=== PATIENT | female | born 1940 | race Caucasian/White ===

== ENCOUNTER 2016-08-05 20:21 | Emergency (ER) | payer OTHER ==
[2016-08-05 20:30] VITALS: BMI 37.8
--- NOTE | 2016-08-05 20:43 | PDOC ---
History of Present Illness - General History Source: Patient, Family (Daughter) Exam Limitations: No Limitations - History of Present Illness Initial Comments: 08/05/16 21:23 The patient is a 76 year old female, with a significant past medical history of Alzheimer's, CAD s/p CABG, HTN, HLD , who presents to the emergency department with chest pain today. The patient is accompanied with her daughter who states that she was on her nightly walk around the track when she suddenly developed mid sternal chest pain with associated SOB. The daughter states she did not have chest pain on yesterdays night walk. She denies headache or dizziness. She denies fever, chills, nausea, vomit, diarrhea or constipation. She denies dysuria, frequency, urgency or hematuria. Allergies: NKA Past surgical history: CABG Social history: None PCP: Dr. Renard Preston <Melba Villafuerte - Last Filed: 08/05/16 22:06> <Jagdish Goins - Last Filed: 08/06/16 01:09> - General Chief Complaint: Chest Pain Stated Complaint: DIFF BREATHING, CHEST PAIN Time Seen by Provider: 08/05/16 20:42 Past History <Melba Villafuerte - Last Filed: 08/05/16 22:06> - Past Medical History Cardiac Disorders: Yes Dementia: Yes Diabetes: Yes (no longer on meds) HTN: Yes Hypercholesterolemia: Yes - Surgical History Cardiac Surgery: Yes (OPEN HEART) - Immunization History Immunization Up to Date: Yes - Psycho/Social/Smoking Cessation Hx Anxiety: No Suicidal Ideation: No Smoking Status: No Smoking History: Unknown if ever smoked Have you smoked in the past 12 months: No Number of Cigarettes Smoked Daily: 0 If you are a former smoker, when did you quit?: 1997 Hx Alcohol Use: No Drug/Substance Use Hx: No Substance Use Type: None Hx Substance Use Treatment: No <Jagdish Goins - Last Filed: 08/06/16 01:09> - Past Medical History Allergies/Adverse Reactions: Allergies Allergy/AdvReac Type Severity Reaction Status Date / Time No Known Allergies Allergy Verified 08/05/16 20:30 Home Medications: Ambulatory Orders Simvastatin [Zocor -] 40 mg PO HS 12/07/13 Carvedilol [Coreg -] 6.25 mg PO BID #60 tablet 12/08/13 Ranolazine [Ranexa -] 500 mg PO BID #60 tab 12/08/13 Calcium Carbonate [Calcium] 500 mg PO BID 08/05/16 Review of Systems - Review of Systems Able to Perform ROS?: Yes Comments:: 08/05/16 21:23 GENERAL/CONSTITUTIONAL: No fever or chills. No weakness. HEAD, EYES, EARS, NOSE AND THROAT: No change in vision. No ear pain or discharge. No sore throat. CARDIOVASCULAR: + chest pain or shortness of breath. RESPIRATORY: No cough, wheezing, or hemoptysis. GASTROINTESTINAL: No nausea, vomiting, diarrhea or constipation. GENITOURINARY: No dysuria, frequency, or change in urination. MUSCULOSKELETAL: No joint or muscle swelling or pain. No neck or back pain. SKIN: No rash NEUROLOGIC: No headache, vertigo, loss of consciousness, or change in strength/ sensation. ENDOCRINE: No increased thirst. No abnormal weight change. HEMATOLOGIC/LYMPHATIC: No anemia, easy bleeding, or history of blood clots. ALLERGIC/IMMUNOLOGIC: No hives or skin allergy. <Melba Villafuerte - Last Filed: 08/05/16 22:06> *Physical Exam - Vital Signs Last Vital Signs Temp Pulse Resp BP Pulse Ox 98.1 F 74 22 120/71 97 08/05/16 20:29 08/05/16 20:29 08/05/16 20:29 08/05/16 20:29 08/05/16 20:29 - Physical Exam Comments: 08/05/16 21:24 GENERAL: Awake, alert, and fully oriented, in no acute distress HEAD: No signs of trauma EYES: PERRLA, EOMI, sclera anicteric, conjunctiva clear ENT: Auricles normal inspection, hearing grossly normal, nares patent, oropharynx clear without exudates. Moist mucosa NECK: Normal ROM, supple, no lymphadenopathy, JVD, or masses LUNGS: Breath sounds equal, clear to auscultation bilaterally. No wheezes, and no crackles HEART: Regular rate and rhythm, normal S1 and S2, no murmurs, rubs or gallops ABDOMEN: Soft, nontender, normoactive bowel sounds. No guarding, no rebound. No masses EXTREMITIES: Normal range of motion, no edema. No clubbing or cyanosis. No cords, erythema, or tenderness NEUROLOGICAL: Cranial nerves II through XII grossly intact. Normal speech, normal gait SKIN: Warm, Dry, normal turgor, no rashes or lesions noted. <ChristoMelba newman - Last Filed: 08/05/16 22:06> - Vital Signs Last Vital Signs Temp Pulse Resp BP Pulse Ox 98.1 F 74 22 120/71 97 08/05/16 20:29 08/05/16 20:29 08/05/16 20:29 08/05/16 20:29 08/05/16 20:29 <Jagdish Goins - Last Filed: 08/06/16 01:09> ED Treatment Course - LABORATORY CBC & Chemistry Diagram: 08/05/16 21:29 08/05/16 21:29 <ChristoMelba - Last Filed: 08/05/16 22:06> - LABORATORY CBC & Chemistry Diagram: 08/05/16 21:29 08/05/16 21:29 <Jagdish Goins - Last Filed: 08/06/16 01:09> Medical Decision Making - Medical Decision Making 08/05/16 22:[address] Buster Piedra. rate 76 bpm Sinus rhythm with occasional premature ventricular complexes NV [id number] ms QRS Duration 80 ms QT/QTc 384/432 P-R-T axes -13 17 9 <ChristoMelba - Last Filed: 08/05/16 22:06> *DC/Admit/Observation/Transfer - Attestations Scribe Attestion: 08/05/16 21:24 Documentation prepared by Melba Villafuerte, acting as medical microbiologist for Jagdish Goins MD/DO. <ChristoMelba - Last Filed: 08/05/16 22:06> - Discharge Dispostion Admit: No - Attestations Physician Attestion: 08/05/16 20:43 I, Dr. Jagdish Goins, attest that this document has been prepared under my direction and personally reviewed by me in its entirety. I further attest, that it accurately reflects all work, treatment, procedures and medical decision -making performed by me. <Jagdish Goins - Last Filed: 08/06/16 01:09> Diagnosis at time of Disposition: Chest pain of unknown etiology - Discharge Dispostion Disposition: HOME Condition at time of disposition: Good - Referrals Referrals: Renard Preston MD [Primary Care Provider] - - Patient Instructions Printed Discharge Instructions: DI for Atypical Chest Pain, DI for Chest Pain Additional Instructions: Mrs Delgado - All of your tests were normal..... but you need to have a stress test. See your doctor tomorrow so that they can schedule you..,.. Return to us if any problems. Best- Dr. Jagdish Goins Take your results with you.
[2016-08-05 22:03] LABS: BASOPHIL 0.3 % (0-2.0); EOSINOPHIL 2.4 % (0-4.5); MCH 27.4 pg (25.7-33.7); MCHC 32.7 g/dl (32.0-36.0); MEAN CELL VOLUME 83.8 fl (80-96); MEAN PLT VOLUME 9.1 fl (7.5-11.1); PLATELET COUNT 130 K/MM3 (134-434); RDW 16.4 % (11.6-15.6); WHITE BLOOD COUNT 4.9 K/mm3 (4.0-10.0)
[2016-08-05 22:15] LABS: INR 1.08 (0.82-1.09); PROTHROMBIN TIME (PATIENT) 11.9 SEC (9.98-11.88)
[2016-08-05 22:17] VITALS: TEMP 98
[2016-08-05 22:26] LABS: ALBUMIN 3.6 g/dl (3.4-5.0); ANION GAP 6 (8-16); CALCIUM 8.8 mg/dL (8.5-10.1); CO2 32 mmol/L (21-32); COCKROFT - GAULT 66.3935; GLUCOSE,RANDOM 123 mg/dL (74-106); SGOT/AST 12 U/L (15-37); SGPT/ALT 17 U/L (12-78)
[2016-08-05 22:30] LABS: ALK PHOS 54 U/L (45-117); BILIRUBIN,TOTAL 0.6 mg/dL (0.2-1.0); TOT PROT 6.2 g/dl (6.4-8.2); TROPONIN I < 0.02 ng/ml (0.00-0.05)
[2016-08-06 00:58] LABS: TROPONIN I < 0.02 ng/ml (0.00-0.05)
[2016-08-06 01:14] VITALS: BP 130/70; PULSE 71
[2016-08-06 01:18] LABS: URINE APPEARANCE CLEAR; URINE BILIRUBIN NEGATIVE (NEGATIVE); URINE BLOOD NEGATIVE (NEGATIVE); URINE COLOR STRAW; URINE GLUCOSE (UA) NEGATIVE (NEGATIVE); URINE KETONE NEGATIVE (NEGATIVE); URINE NITRITE NEGATIVE (NEGATIVE); URINE PROTEIN NEGATIVE (NEGATIVE); URINE UROBILINOGEN NEGATIVE E.U./dl (0.2-1.0)
[2016-08-06 01:25] LABS: URINE LEUK ESTERASE 1+ (NEGATIVE)
[2016-08-06 02:50] LABS: URINE RBC 2 /hpf (0-3); URINE WBC 4 /hpf (3-5)
--- NOTE | 2016-08-06 13:06 | EKG ---
Test Reason : Blood Pressure : / mmHG Vent. Rate : 076 BPM Atrial Rate : 076 BPM P-R Int : 186 ms QRS Dur : 080 ms QT Int : 384 ms P-R-T Axes : -13 017 009 degrees QTc Int : 432 ms SINUS RHYTHM WITH OCCASIONAL PREMATURE VENTRICULAR COMPLEXES OTHERWISE NORMAL ECG WHEN COMPARED WITH ECG OF 07-DEC-2013 07:23, PREMATURE VENTRICULAR COMPLEXES ARE NOW PRESENT Confirmed by DIYA RICHARDS, MIGUEL ANGEL ([id number]) on 08/06/2016 1:06:42 PM Referred By: Confirmed By:MIGUEL ANGEL KEANE MD
== END 2016-08-06 01:14 | disposition home or self-care (01) ==
LOC: JER 20:21
DX: R07.89 Other chest pain (principal); I25.10 Atherosclerotic heart disease of native coronary artery without angina pectoris; I10 Essential (primary) hypertension; Z95.1 Presence of aortocoronary bypass graft; E78.00 Pure hypercholesterolemia, unspecified; G30.8 Other Alzheimer's disease; F02.80 Dementia in other diseases classified elsewhere, unspecified severity, without behavioral disturbance, psychotic disturbance, mood disturbance, and anxiety
CPT/HCPCS: 36415; 71010-TC; 80053; 81003; 81015; 82550; 83880; 84484; 85025; 85610; 93005; 93010; 99284-25

== ENCOUNTER 2017-03-07 18:04 | Emergency (ER) | payer OTHER ==
[2017-03-07 18:28] VITALS: BP 120/71; PULSE 65; TEMP 99; BMI 34.9
--- NOTE | 2017-03-07 18:48 | PDOC ---
Attending Attestation - Medical Decision Making 10:00pm Call placed to Dr. Driscoll's answering service, awaiting call back. r EXAM: CT cervical spine without contrast HISTORY: Status post fall COMPARISON: None. FINDINGS: 1. No evidence of fracture or subluxation of the cervical spine. 2. Cervical spondylosis. Read by: Ping Ross MD EXAM: CT head without contrast HISTORY: Status post fall COMPARISON: None. FINDINGS: 1. There is loss of visualization of the subarachnoid spaces in the right frontal parietal convexity suggestive of edema in this region. The cortex continues to be clearly visualized. There is no evidence of intracranial hemorrhage or significant mass effect. Comparison with previous imaging studies would be helpful. If no prior studies are available for comparison, MRI of the brain may be helpful for further evaluation of this finding. 2. Ventricular size is concordant with the degree of atrophy. 3. The visualized portions of the orbits, paranasal and mastoid sinuses are unremarkable 4. No evidence of fracture. Read by: Ping Ross MD 10:16pm Second call placed to Dr. Driscoll's answering service, awaiting call back. EXAM: X-ray left hip, 2 views HISTORY: Status post fall onto left side. Next the old x-ray pelvis also performed today COMPARISON: None. FINDINGS: Visualization of detail is significantly limited by artifact created by large body habitus. There is no definite evidence of fracture or subluxation. However, a subtle fracture could be missed due to artifact. There is atherosclerotic vascular calcification. IMPRESSION:1. Study degraded by artifact created by large body habitus. 2. No definite evidence of fracture or subluxation. However, subtle fractures could be missed due to artifact. If there is a clinical concern for fracture, CT imaging would be helpful. Read by: Ping Ross MD EXAM: XR LEFT ELBOW HISTORY: Fracture COMPARISON: None. FINDINGS: There is a minimally displaced comminuted fracture of the proximal ulna with intra-articular extension. No dislocation or additional fractures.. IMPRESSION: Proximal intra-articular ulna fracture. Read by: Moises Paredes MD Documentation prepared by Malcolm Javier, acting as medical records assistant for Rossy Stratton MD. 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 Pt was with daughter when she tripped on a stair landing on her L elbow, L hip. Pt denies headstrike, daughter does not believe she struck her head but is not sure. Pt did not have LOC. Was able to walk afterwards, reports mostly pain in L elbow. Daughter reports pt at baseline and was in her USOH prior to the fall. No fevers , chills, CP, SOB, palpitations, headache, weakness, numbness, abd pain, focal weakness or numbness. - Physicial Exam PE: 03/07/17 18:48 GENERAL: Awake, alert, in no acute distress HEAD: No signs of trauma EYES: PERRLA, EOMI, sclera anicteric, conjunctiva clear ENT: Auricles normal inspection, hearing grossly normal, nares patent, oropharynx clear without exudates. Moist mucosa NECK: Normal ROM, supple, no lymphadenopathy, JVD, or masses LUNGS: Breath sounds equal, clear to auscultation bilaterally. No wheezes, and no crackles HEART: Regular rate and rhythm, normal S1 and S2, no murmurs, rubs or gallops ABDOMEN: Soft, nontender, normoactive bowel sounds. No guarding, no rebound. No masses EXTREMITIES: L elbow with large hematoma and deformity to olecrenon fossa, pain with ROM, 2+ radial pulse. No ttp of L hip, pelvis stable, FROM of hips b/l and knees. RUE wnl, FROM, no edema. NEUROLOGICAL: Normal speech, cranial nerves intact, negative pronator drift, 5/ 5 strength in all 4 extremities, normal sensation to light touch in all 4 extremities, normal cerebellar exam, normal reflexes and tone SKIN: Warm, Dry, normal turgor, no rashes or lesions noted. - Medical Decision Making 03/07/17 18:50 76yo F on ASA 81mg daily p/w mechanical fall. Will obtain imaging of head, LUE, chest, hip/pelvis to look for bony injury. Pt declines pain medication. 03/08/17 00:29 Elbow XR with fracture of prox ulna, c/s Dr. Driscoll who recommends posterior splint with bulky dressing underneath. Splint placed. Pt feels well, at her baseline. CTH with possible edema? to R frontal parietal convexity. No bleeding or other acute findings. IOC recommends further imaging for evaluation of this finding but patient and her daughter do not want to stay for further evaluation. Per the daughter, pt is at her baseline and they will follow up with PMD next week. CT c-spine and pelvis/chest XR wnl. I discussed the physical exam findings, ancillary test results and final diagnoses with the patient. I answered all of the patient's questions. The patient was satisfied with the care received and felt comfortable with the discharge plan and treatment plan. The patient will call their primary care physician within 24 hours to arrange follow-up and will return to the Emergency Department with any new, persistent or worsening symptoms. 03/09/17 04:31 Reviewed read of CTH by our radiologist Dr. Varma which reveals no focal edema as was read by imaging nutritionist public health. CTH read with no acute changes. <Rossy Stratton - Last Filed: 03/09/17 04:32>
[2017-03-07 19:42] LABS: BASO % 0.2 % (0-2.0); EOS # 0.1 # (0-4.5); LYMPH # 0.9 (8-40); MCH 27.8 pg (25.7-33.7); MCHC 33.2 g/dl (32.0-35.9); MEAN CELL VOLUME 83.8 fl (80-96); MEAN PLT VOLUME 8.4 fl (7.5-11.1); MONO # 0.2 # (3.8-10.2); NEUT # 4.5 # (42.8-82.8); NEUT % 78.8 % (42.8-82.8); PLATELET COUNT 128 K/MM3 (134-434); RDW 16.8 % (11.9-15.9); WHITE BLOOD COUNT 5.7 K/mm3 (4.0-10.0)
[2017-03-07 20:05] LABS: ALBUMIN 3.5 g/dl (3.4-5.0); ALK PHOS 60 U/L (45-117); ANION GAP 7 (8-16); BILIRUBIN,TOTAL 0.6 mg/dL (0.2-1.0); CALCIUM 8.4 mg/dL (8.5-10.1); CO2 28 mmol/L (21-32); CREATININE 0.8 mg/dL (0.7-1.3); GLUCOSE,RANDOM 124 mg/dL (74-106); SGOT/AST 12 U/L (15-37); SGPT/ALT 19 U/L (12-78); TOT PROT 6.2 g/dl (6.4-8.2)
[2017-03-07] MEDS ORDERED: ACETAMINOPHEN 1000 MG/100 ML VIAL (NON FORMULARY) IVPB ONE (20:41)
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
[2017-03-07] MEDS ORDERED: ACETAMINOPHEN INJECTION 100 ML IVPB ONE (21:14)
[2017-03-07] MEDS ORDERED: OLANZapine 5 MG TABLET PO ONE (22:41)
[2017-03-07] MEDS ORDERED: OLANZapine 10 MG TABLET ONE ×2 (22:46→22:47)
--- NOTE | 2017-03-08 15:25 | EKG ---
Test Reason : Blood Pressure : / mmHG Vent. Rate : 070 BPM Atrial Rate : 070 BPM P-R Int : 182 ms QRS Dur : 084 ms QT Int : 424 ms P-R-T Axes : 047 012 013 degrees QTc Int : 457 ms NORMAL SINUS RHYTHM NORMAL ECG WHEN COMPARED WITH ECG OF 05-AUG-2016 20:35, PREMATURE VENTRICULAR COMPLEXES ARE NO LONGER PRESENT Confirmed by MONIKA HENDERSON MD ([id number]) on 03/08/2017 3:25:32 PM Referred By: Confirmed By:MONIKA HENDERSON MD
== END 2017-03-08 | disposition home or self-care (01) ==
LOC: EDSEX 18:04 → JER 18:04
PROC: 2W39X1Z Immobilization of Left Upper Extremity using Splint (ICD-10-PCS; principal; 2017-03-07)
DX: S52.022A Displaced fracture of olecranon process without intraarticular extension of left ulna, initial encounter for closed fracture (principal); W01.0XXA Fall on same level from slipping, tripping and stumbling without subsequent striking against object, initial encounter; Y93.89 Activity, other specified; Y92.038 Other place in apartment as the place of occurrence of the external cause; I10 Essential (primary) hypertension; E11.9 Type 2 diabetes mellitus without complications; E78.00 Pure hypercholesterolemia, unspecified
CPT/HCPCS: 36415; 70450-TC; 71020-TC; 72125-TC; 72170-TC; 73070-TC-LT; 73502-TC-LT; 80053; 85025; 93005; 93010; 99283-25